=== PATIENT | female | born 1960 | race Caucasian/White ===

== ENCOUNTER 2019-07-22 13:18 | Emergency (ER) | payer OTHER ==
[~2019-07-22] VITALS: Ht 165.1 cm; Wt 59.0 kg
[2019-07-22] MEDS ORDERED: FOSAMAX70 MG PO (13:23)
== END 2019-07-22 17:26 | disposition home or self-care (01) ==
LOC: ER 13:18
DX: S60.211A Contusion of right wrist, initial encounter (principal); S70.01XA Contusion of right hip, initial encounter; S90.31XA Contusion of right foot, initial encounter; W18.39XA Other fall on same level, initial encounter; Y93.89 Activity, other specified; Y92.59 Other trade areas as the place of occurrence of the external cause; Y99.8 Other external cause status